=== PATIENT | female | born 1975 | race Caucasian/White ===

== ENCOUNTER 2025-02-05 11:13 | Outpatient (REF) | payer OTHER, SELFPAY ==
--- NOTE | ~2025-02-05 | XR_ITS ---
EXAMINATION: XR KNEE 3 VIEWS RIGHT HISTORY: M25.561 - Pain in right knee COMPARISON: There are no prior studies available for comparison. FINDINGS: Three views of the right knee are submitted. Osseous mineralization is normal. There is no fracture or dislocation. There is mild narrowing of the medial patellofemoral compartments. The soft tissues are unremarkable. There is no joint effusion. XR/XR knee RT 3V IMPRESSION: Mild narrowing of the medial and patellofemoral compartments. Electronically signed by: Jimmie Waters MD 02/06/2025 03:40 PM EDT
== END 2025-02-05 11:14 | disposition home or self-care (01) ==
LOC: HO.HOSX 11:13
PROVIDERS: Visit Provider Orthopaedic Surgery
DX: M25.561 Pain in right knee (principal)
CPT/HCPCS: 73562

== ENCOUNTER 2025-02-05 13:41 | Outpatient (AMB) | payer OTHER, SELFPAY ==
--- NOTE | 2025-02-05 13:57 | MHC.OFFVIS ---
Vital Signs 02/05/25 14:14 Height 5 ft 6 in Weight 225 lb BMI 36.3 Intake Visit Reasons: Right knee pain and giving way Intake Note: Ramiro is a 49 year old female who presents with complaints of progressively worsening right knee pain and giving way. The patient states that her symptoms have gotten worse over the last few months. She has failed the last 6 weeks of conservative treatment which has included a home exercise program, Tylenol and ibuprofen. The patient states that most of the pain is along the medial aspect of her knee. She has done physical therapy exercises which aggravated her pain. Allergies amoxicillin Allergy (Unknown, Verified 02/05/25 14:16) Unknown Physical Exam Vital Signs: BMI result Body Mass Index 36.3 Const Other: Well-nourished well-developed very friendly female awake alert and oriented x3 in no acute distress Extrem Other: Bilateral lower extremity examination shows good capillary refill, no skin lesions noted, normal sensation light touch Right knee examination shows a minimal effusion, mild crepitus with range of motion, tenderness along her medial joint line, positive Shiva's test, no instability Results Reviewed Results Reviewed: Standing full weight-bearing X-rays of the patient's right knee show mild diffuse joint space narrowing, no acute bony abnormalities Assessment & Plan Assessment & Plan (1) Tear of medial meniscus of right knee: Code(s): S83.241A - Other tear of medial meniscus, current injury, right knee, initial encounter Category: Medical Plan Ms. Peralta presents with progressively worsening right knee pain and mechanical symptoms most likely due to a medial meniscus tear. Thus, will send the patient for an MRI of her right knee for further evaluation. I will see her back once the MRI is completed to discuss the findings and treatment options. Feel free to call me at any time should questions regarding her orthopedic management arise. Thank you very much for asking me to see this very friendly patient. I spent 22 minutes in reviewing the patient's records and imaging studies, seeing the patient and documenting in the medical record. Orders: Orders XR knee RT 3V Today M25.561 - Pain in right knee MR knee RT wo con Today S83.241A - Other tear of medial meniscus, current injury, right knee, initial encounter Coding Level of Care Code New Pt Level 3 (23585) Complex EM visit Add On G2211 Diagnoses Tear of medial meniscus of right knee S83.241A
[2025-02-05 14:14] VITALS: BMI 36.3
== END 2025-02-05 14:39 | disposition home or self-care (01) ==
LOC: HO.HOS 13:41
PROVIDERS: Visit Provider Orthopaedic Surgery
DX: S83.241A Other tear of medial meniscus, current injury, right knee, initial encounter (principal)
CPT/HCPCS: 99203

== ENCOUNTER → 2025-02-05 14:03 | Outpatient (BNV) | payer OTHER, SELFPAY | PROVIDERS: Visit Provider Radiology Diagnostic Radiology | DX: M25.561 Pain in right knee (principal) | CPT/HCPCS: 73562 ==

== ENCOUNTER → 2025-02-13 18:44 | Outpatient (BNV) | payer OTHER, SELFPAY | PROVIDERS: PCP Internal Medicine; Visit Provider Radiology Diagnostic Radiology | DX: S83.411A Sprain of medial collateral ligament of right knee, initial encounter (principal) | CPT/HCPCS: 73721 ==

== ENCOUNTER 2025-02-13 18:51 | Outpatient (REF) | payer OTHER, SELFPAY ==
--- NOTE | ~2025-02-13 | MR_ITS ---
EXAMINATION: MRI RIGHT KNEE WITHOUT CONTRAST HISTORY: S83.241A - Other tear of medial meniscus, current injury, right knee COMPARISON: There are no prior studies for comparison. TECHNIQUE: Coronal T1 and fat-suppressed proton density, sagittal proton density and fat-suppressed proton density, and axial fat suppressed T2 weighted MR images of the right knee were obtained. FINDINGS: Bone marrow: There is a small focus of marrow edema involving the medial tibial plateau compatible with a bone contusion. Bone marrow signal intensity is otherwise normal. Joint effusion: There is no joint effusion. Abreu's cyst: There is a small Abreu's cyst. Articular cartilage: There is mild osteoarthritis of the patellofemoral compartment particularly involving the medial patellar facet with cartilage loss and subchondral cyst formation. Muscles/soft tissues: The visualized muscles demonstrate normal signal intensity. Anterior cruciate ligament: Intact Posterior cruciate ligament: Intact Medial collateral ligament: There is edema about the medial collateral ligament compatible with a sprain. The ligament is intact. Lateral collateral ligament: Intact Medial meniscus: Intact Lateral meniscus: Intact Flexor mechanism: The popliteus, gastrocnemius, and hamstring tendons are intact. Quadriceps tendon: Intact Patellar tendon: Intact Patellar retinacula: Intact MR/MR knee RT wo con IMPRESSION: 1. Mild osteoarthritis of the patellofemoral compartment as described. 2. Findings consistent with a small bone contusion involving the medial tibial plateau. 3. MCL sprain. Electronically signed by: Jimmie Waters MD 02/14/2025 07:56 AM EDT
--- OUTSIDE RECORDS SUMMARY | 2025-02-13 19:37 | XMS_ITS | Clinical Summary ---
Author Organization [address] Address [address] [place] [address] [place] [address] Phone Care Team Providers Care Mold Maintenance Technician Name Role Phone Elijah Lake MD Primary Care Provider [phone] Allergies Active Allergy Reactions Criticality Noted Date Comments Amoxicillin 04/08/2011 Medications albuterol HFA (PROAIR HFA ; PROVENTIL HFA ; VENTOLIN HFA) 90 mcg/actuation inhaler Inhale 2 Puffs into the lungs every 4 hours as needed for Cough, Wheezing or Shortness of Breath. 9 Active LEVONORGESTREL UTRN by Intrauterine route. Active ibuprofen (ADVIL,MOTRIN) 800 mg tablet Take 1 Tablet by mouth every 8 hours as needed for Pain for up to 360 days. 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 Asthma 09/08/2014 Overview (11/25/2024): Very mild, no need for med/Alb for 3 years Immunizations Name Administration Dates Next Due Tdap Tetanus diptheria acell ular pertussis (Boostrix; Adacel) 7yo and older 11/10/2010 Surgical History Surgery Date Site/Laterality Comments VAGINOSCOPY PROCEDURE: [place] COLPOSCOPY CERVIX VAG LOOP ELTRD BX CERVIX ANKLE SURGERY PROCEDURE: HISTORICAL ANKLE SURGERY Medical History Medical History Date Comments Asthma DX:Asthma Asthma 02/16/2009 DX:Asthma; COMME NT: Very mild, no need for med/Alb for 3 years 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 DX:Osteochondral talar dome lesion Family History Medical History Relation Name Comments No Known Problems Brother No Known Problems Father Other: heart disease Grandparent Other: skin ca Maternal Grandmother No Known Problems Mother Melanoma Sister Breast cancer Neg Hx Relation Name Status Comments Brother Alive Father Alive Grandparent Maternal Grandmother Mother Alive Sister Alive Social History Tobacco Use Types Packs/Day Years Used Date Smoking Tobacco: Former Cigarettes 1 5 0 11/20/1992 - 11/20/1997 Smokeless Tobacco: Never Alcohol Use Standard Drinks/Week Comments Yes 0 (1 standard drink = 0.6 oz pur e alcohol) Comments No Sex and Gender Information Value Date Recorded Sex Assigned at Not on file Legal Sex Female 7:19 AM EST Gender Identity Not on file Sexual Orientation Not on file Obstetrics History Para Term AB IAB SAB Ectopic Multiple Livin g Live Births 1 Date Outcome GA Total Labor Labor//3rd Weight Sex Type Anes PTL Jocelynn A1 A5 Name Clin Term Last Filed Vital Signs Vital Sign Reading Time Taken Comments Blood Pressure 116/72 02/15/2024 4:10 PM EDT Pulse 70 02/15/2024 4:10 PM EDT Temperature - - Respiratory Rate - - Oxygen Saturation - - Inhaled Oxygen Concentration - - Weight 103 kg (226 lb 3.2 oz) 02/15/2024 4:10 PM EDT Height 167.6 cm (5' 6 ) 02/07/2023 11:36 AM EDT Body Mass Index 36.51 02/07/2023 11:36 AM EDT Plan of Treatment Health Maintenance Due Date Last Done Comments Hepatitis B Vaccines (1 of 3 - 19+ 3-dose series) 1995 Pneumococcal Vaccine: Pediatrics (0 to 5 Years) and At-Risk Patients (6 to 64 Years) (1 of 2 - PCV) 1995 Cervical Cancer Screening: Pap Smear 06/27/2020 06/27/2017, 06/27/2017 DTaP,Tdap,and Td Vaccines (2 - Td or Tdap) 11/10/2020 11/10/2010 Colorectal Cancer Screening: Colonoscopy 10/29/2022 Depression Screening 10/29/2022 HIV Screening 10/29/2022 Hepatitis C Screening 10/29/2022 Social Influencers of Health Screening 10/29/2022 COVID-19 Vaccine (2023- season) 2024 Influenza Vaccine (#1) 2024 Breast Cancer Screening 11/04/2026 11/04/20 24, 07/17/2023, 07/06/2022, Additional history exists HIB Vaccines Aged Out No longer eligi ble based on patient's age to complete this topic HPV Vaccines Aged Out No longer eligi ble based on patient's age to complete this topic Hepatitis A Vaccines Aged Out No long er eligible based on patient's age to complete this topic IPV Vaccines Aged Out No longer eligi ble based on patient's age to complete this topic MMR Vaccines Aged Out No longer eligi ble based on patient's age to complete this topic Meningococcal ACWY Vaccine Aged Out N o longer eligible based on patient's age to complete this topic Meningococcal B Vacine Aged Out No lo nger eligible based on patient's age to complete this topic RSV Immunization Patients Under 20 months Aged Out No longer eligible based on patient's age to complete this topic Varicella Vaccines Aged Out No longer eligible based on patient's age to complete this topic Procedures Procedure Name Priority Date/Time Associated Diagnosis Comments MG MAMMO DIGITAL SCREENING W TERRENCE BILAT Routine 11/04/2024 2:51 PM EST Encounter for screening mammogram for breast cancer HPV Routine 06/27/2017 from Last 3 Months or Most Recently Relevant to Health Maintenance Results * MG Mammo Digital Screening w Terrence bilat (11/04/2024 2:51 PM EST) Anatomical Region Laterality Modality Breast Bilateral Mammography 11/05/2024 11:3 4 AM EST Impressions 11/05/2024 11:35 AM EST No mammographic evidence of malignancy. BREAST DENSITY: B - There are scattered areas of fibroglandular density. BI-RADS CATEGORY: 1 - NEGATIVE RECOMMENDATION: Screening bilateral mammogram is recommended in 1 year. MAMMO LOCATION: [facility], [address] [place] [address], [phone], . -------- FINAL REPORT -------- Dictated By: Julieth Willis Dictated Date: 11/05/2024 11:34 ET Assigned Physician: Julieth Willis Reviewed and Electronically Signed By: Julieth Willis Signed Date: 11/05/2024 11:35 ET Workstation ID: [id number] Transcribed By: Self Edit Transcribed Date: 11/05/2024 11:34 ET Narrative 11/05/2024 11:35 AM EST EXAM: Screening Mammogram CLINICAL: 49 years old, Female, routine annual exam. COMPARISON: 07/17/2023 and as far back as 12/25/2019 ?? TECHNIQUE: Bilateral MLO and CC views were obtained digitally with 3-D mammogram (digital breast tomosynthesis). Computer-aided detection was utilized in evaluation of this exam (CAD). FINDINGS: No new suspicious mass, architectural distortion, or suspicious calcifications. Procedure Note Julieth Willis MD - 11/05/2024 EXAM: Screening Mammogram CLINICAL: 49 years old, Female, routine annual exam. COMPARISON: 07/17/2023 and as far back as 12/25/2019 TECHNIQUE: Bilateral MLO and CC views were obtained digitally with 3-Dmammogram (digital breast tomosynthesis). Computer-aided detection wasutilized in evaluation of this exam (CAD). FINDINGS: No new suspicious mass, architectural distortion, or suspiciouscalcifications. IMPRESSION: No mammographic evidence of malignancy. BREAST DENSITY: B - There are scattered areas of fibroglandular density. BI-RADS CATEGORY: 1 - NEGATIVE RECOMMENDATION: Screening bilateral mammogram is recommended in 1 year. MAMMO LOCATION: [facility], [address] [place] [address], [phone], . -------- FINAL REPORT -------- Dictated By: Julieth Willis Dictated Date: 11/05/2024 11:34 ET Assigned Physician: Julieth Willis Reviewed and Electronically Signed By: Julieth Willis Signed Date: 11/05/2024 11:35 ET Workstation ID: [id number] Transcribed By: Self Edit Transcribed Date: 11/05/2024 11:34 ET Elijah Lake MD IMG BI PROCEDURES Final Result * Hm Cervical Cancer Screening: HPV (06/27/2017) Cervical Cancer Screening: HPV no interpreta tion,abstr acted us Historical Provider HEALTH MAINTENANCE Final Result from Last 3 Months or Most Recently Relevant to Health Maintenance Insurance [employer] Care Teams Mold Maintenance Technician Relationship Specialty Start Date End Date Elijah Lake MD [address] [place] [address] ELIEL Pierce [id number] PCP - General 01/18/09
== END 2025-02-13 18:52 | disposition home or self-care (01) ==
LOC: HO.MRI 18:51
PROVIDERS: PCP Internal Medicine; Visit Provider Orthopaedic Surgery
DX: S83.241A Other tear of medial meniscus, current injury, right knee, initial encounter (principal)
CPT/HCPCS: 73721

== ENCOUNTER 2025-02-20 14:46 | Outpatient (AMB) | payer OTHER, SELFPAY ==
[2025-02-20 14:50] VITALS: BMI 36.3
--- NOTE | 2025-02-20 14:50 | A.OFFVIS_ITS ---
Vital Signs 02/20/25 14:50 Height 5 ft 6 in Weight 225 lb BMI 36.3 Intake Visit Reasons: MRI Review Right knee Intake Note: Ramiro is a 49 year old female who presents today for review of right knee MRI result. The patient describes her knee pain as sharp in nature. Most of the pain is along the anterior and medial aspects of her knee. She has tried ibuprofen which gives her mild relief. The patient states that at times it feels like her right knee will give out. She has tried on several to[place]kw[place] knee braces but none of them fit her well. Allergies amoxicillin Allergy (Unknown, Verified 02/20/25 14:50) Unknown Medication List - Last Reconciled 02/20/25 by Michael Heredia MD ibuprofen 800 mg PO TID methylprednisolone (Medrol (Scot)) PO PER PKG DIR Physical Exam Vital Signs: BMI result Body Mass Index 36.3 Const Other: Well-nourished well-developed very friendly female awake alert and oriented x3 in no acute distress Extrem Other: Right knee examination shows a minimal effusion, minimal crepitus with range of motion, tenderness along her proximal tibia, no overlying skin lesions Results Reviewed Results Reviewed: MRI of the patient's right knee shows bone bruising of the medial tibial plateau, no evidence of meniscus or ligamentous injury, a grade 1 medial collateral ligament sprain Assessment & Plan Assessment & Plan (1) Right knee pain: Code(s): M25.561 - Pain in right knee Category: Medical Plan Ms. Peralta presents with right knee pain due to bony contusion and a grade 1 sprain of her medial collateral ligament. I had a lengthy discussion with the patient regarding the treatment options. There is no surgery indicated for these injuries. I did give her a prescription for a Medrol Dosepak to help with her discomfort. I also had her fitted with a knee brace. I do feel that the knee braces a medical necessity because of her symptoms of instability to help prevent future falls. The patient will follow up with me on an as-needed basis should her symptoms not plateau over the next few months. Feel free to call me at any time should questions regarding her orthopedic management arise. I spent 21 minutes in reviewing the patient's records and imaging studies, see ing the patient and documenting in the medical record. Medications: New methylprednisolone (Medrol (Scot)) PO PER PKG DIR 21 ea 0RF Coding Level of Care Code Est Pt Level 3 (79783) Complex EM visit Add On G2211 Diagnoses Right knee pain M25.561
--- OUTSIDE RECORDS SUMMARY | 2025-02-20 16:15 | XMS_ITS | Clinical Summary ---
Author Organization [address] Address [address] [place] [address] [place] [address] Phone Care Team Providers Care Patient Experience Coordinator Name Role Phone Elijah Lake MD Primary Care Provider [phone] Allergies Active Allergy Reactions Criticality Noted Date [...] History Surgery Date Site/Laterality Comments VAGINOSCOPY PROCEDURE: [place] COLPOSCOPY CERVIX VAG LOOP ELTRD BX CERVIX [...] Procedure Name Priority Date/Time Associated Diagnosis Comments EXTERNAL MRI REPORT 02/13/2025 EXTERNAL MRI REPORT 02/13/2025 MG MAMMO DIGITAL SCREENING W TERRENCE BILAT Routine 11/04/2024 2:51 PM EST Encounter for screening mammogram for breast cancer HPV Routine 06/27/2017 from Last 3 Months or Most Recently Relevant to Health Maintenance Results * External MRI Report (02/13/2025) Only the most recent of2 resultswithin the time period is included. Anatomical Region Laterality Modality Magnetic Resonan ce us Provider [facility] MRI PROCEDURES Final Result * MG Mammo Digital Screening w Terrence bilat (11/04/2024 2:51 PM EST) Anatomical Region Laterality Modality Breast Bilateral Mammography 11/05/2024 11:3 4 AM EST Impressions 11/05/2024 11:35 AM EST No mammographic evidence of malignancy. BREAST DENSITY: B - There are scattered areas of fibroglandular density. BI-RADS CATEGORY: 1 - NEGATIVE RECOMMENDATION: Screening bilateral mammogram is recommended in 1 year. MAMMO LOCATION: [facility], [address] [place] [address], [phone], . -------- FINAL REPORT -------- Dictated By: Julieth Willis Dictated Date: 11/05/2024 11:34 ET Assigned Physician: Julieth Willis Reviewed and Electronically Signed By: Julieth Willis Signed Date: 11/05/2024 11:35 ET Workstation ID: [id number] Transcribed By: Self Edit Transcribed Date: 11/05/2024 [...] is recommended in 1 year. MAMMO LOCATION: [facility], [address] [place] [address], [phone], . -------- FINAL REPORT -------- Dictated By: Julieth Willis Dictated Date: 11/05/2024 11:34 ET Assigned Physician: Julieth Willis Reviewed and Electronically Signed By: Julieth Willis Signed Date: 11/05/2024 11:35 ET Workstation ID: [id number] Transcribed By: Self Edit Transcribed Date: 11/05/2024 11:34 ET Elijah Lake MD IMG BI PROCEDURES Final Result * Cervical Cancer Screening: HPV (06/27/2017) Pathologist [facility] Cervical Cancer Screening: HPV no interpreta tion,abstr acted Historical Provider HEALTH MAINTENANCE Final Result from Last 3 Months or Most Recently Relevant to Health [place] [id number] [employer] Care Teams Patient Experience Coordinator Relationship Specialty Start Date End Date Elijah Lake MD [address] [place] [address] PCP - General 01/18/09
--- OUTSIDE RECORDS SUMMARY | 2025-02-20 16:15 | XMS_ITS | Data Portability ---
Author Organization [facility], [address] Address [address] [place] [address] Care Team Providers Care Process Assistant Name Role Phone [facility] Prim franklin Care Provider Assessment No assessment recorded. Plan of Treatment Reminders Order Date Submit Date Provider Last Modified By Organization Details Last Modified Time Details Appointments None recorded. Lab rapid SARS CoV 2 Ag, QL IA, respiratory specimen 2022 023 [facility], [address] [place] [address], [phone], 3 16:34:38 rapid flu (A+B) 2022 023 [email or web address] _[facility], [address] [place] [address], [phone], 3 09:57:07 rapid SARS CoV 2 Ag, QL IA, respiratory specimen [address], [address] [place] [address], [phone], 3 09:57:07 Referral None recorded. Procedures None recorded. Surgeries None recorded. Imaging None recorded. Medication Orders benzonatate 200 mg capsule 2022 023 [id number], [address], [place], [address], 3 16:34:42 prednisone 20 mg tablet 2022 023 [facility]/Pharmacy #[id number], [address], [place], [address], 3 16:34:42 albuterol sulfate HFA 90 mcg/actuati on aerosol inhaler 2022 023 [facility]/Pharmacy #[id number], [address], [place], [address], 3 16:34:43 Allergy Relief (fluticason e) 50 mcg/actuati on nasal spray,suspe nsion 2022 023 [facility]/Pharmacy #[id number], [address], [place], [address], 3 16:34:42 Patient TargetsNo targets recorded. Patient Instructions Encounter Date Encounter Id Patient Instructions Last Modified By Organization Details Last Modified Time 12/03/2022 [id number] laryngitis: care instructions Not available 12/03/2022 09:57:07 cough: care instructions Not available 12/03/2022 09:57:07 01/29/2023 [id number] cough: care instructions Not available 01/29/2023 16:34:38 wheezing or bronchoconstrictio n: care instructions Not available 01/29/2023 16:34:38 Patient instruct ed on worsening signs and symptoms that would require further evaluation by ED or PCP such as fever of 101.0 or greater, congestion accompanied with coughing, vomiting, diarrhea, abdominal pain, decreased oral intake, lethargy, or other new symptom(s) experienced not discussed during this visit. Use humidifier and ensure good hydration. If you experience new concerning symptoms, shortness of breath, respiratory distress, or chest pain go to the ER. Use the medications prescribed. May use Decongestants if tolerated and no history of elevated blood pressure or Diabetes. Use saline nasal saline and Flonase daily for1 week. You may use tylenol for pain/fever. Do not take prednisone with Ibuprofen. Get some extra rest. When should you call for help? Call anytime you think you may need emergency care. For example, call if: You have severe trouble breathing. Call your doctor now or seek immediate medical care if: You have new or worse trouble breathing. You cough up dark brown or bloody mucus (sputum). You have a new or higher fever. You have a new rash. Watch closely for changes in your health, and be sure to contact your doctor if: You cough more deeply or more often, especially if you notice more mucus or a change in the color of your mucus. You are not getting better as expected. If you test positive for COVID-19, stay home for at least 5 days and isolate from others in your home. You are likely most infectious during these first 5 days. Wear a high-quality mask if you must be around others at home and in public. Do not go places where you are unable to wear a mask. For travel guidance, see CDC? s Travel webpage. Do not travel. Stay home and separate from others as much as possible. Use a separate bathroom, if possible. Take steps to improve ventilation at home, if possible. Don? t share personal household items, like cups, towels, and utensils. Monitor your symptoms. If you have an emergency warning sign (like trouble breathing), seek emergency medical care immediately. If you had symptoms and: Your symptoms are improving You may end isolation after day 5 if: You are fever-free for 24 hours (without the use of fever-reducing medication). Your symptoms are not improving Continue to isolate until: You are fever-free for 24 hours (without the use of fever-reducing medication). Your symptoms are improving. Regardless of when you end isolation Until at least day 11: Avoid being around people who are more likely to get very sick from COVID-19. Remember to wear a high-quality mask when indoors around others at home and in public. Do not go places where you are unable to wear a mask until you are able to discontinue masking (see below). For travel guidance, see CDC? s Travel webpage. Not available 01/29/2023 16:34:24 Reason for Referral None Reported. Results Created Date Observation Date Name Description Value Unit Range Abnormal Flag Note LastModifiedBy Organization Detail LastModifiedTime 12/03/19 23 12/03/2022 rapid SARS CoV 2 Ag, QL IA, respi rator y speci men Unknown Analyte Normal =Negat bishnu Not Available yen [address], [place], [address], 12/03/2022 08:58:32 12/03/19 23 12/03/2022 rapid SARS CoV 2 Ag, QL IA, respi rator y speci men Unknown Analyte negati ve Not Available [address] [place] [address], [place], [address], 12/03/2022 08:58:32 12/03/19 23 12/03/2022 rapid flu (A+B) Unknown Analyte Normal = Negati ve Not Available [address] [place] [address], [place], [address], 12/03/2022 08:58:22 12/03/19 23 12/03/2022 rapid flu (A+B) Unknown Analyte negati ve Not Available [address] [place] [address], [place], [address], 12/03/2022 08:58:22 12/03/19 23 12/03/2022 rapid flu (A+B) Unknown Analyte Normal = Negati ve Not Available [address] [place] [address], [place], [address], 12/03/2022 08:58:22 12/03/19 23 12/03/2022 rapid flu (A+B) Unknown Analyte negati ve Not Available [address] [place] [address], [place], [address], 12/03/2022 08:58:22 01/30/20 23 01/29/2023 rapid SARS CoV 2 Ag, QL IA, respi rator y speci men Unknown Analyte Normal =Negat bishnu Not Available [address] [place] [address], [place], [address], 01/29/2023 16:24:27 01/30/20 23 01/29/2023 rapid SARS CoV 2 Ag, QL IA, respi rator y speci men Unknown Analyte negati ve Not Available [address] [place] [address], [place], [address], 01/29/2023 16:24:27 Result Notes None recorded. Problems No Known Problems Procedures Surgical History Date Name Laterality Status Provider Name and Address Organization Details Recorded Time procedure on ankle completed MATIAS CANALES PA - [facility] 12/03/2022 09:02:14 Mirena, 52 mg completed BELKYS GONZALES PA - [facility] 01/29/2023 15:38:39 Imaging Results None recorded. Procedure Notes None recorded. Medical Equipment None Reported. Allergies Allergen ID Allergen Name Allergen Category Reaction Reaction Severity Criticality Documentation Date Start Date Code Code System Note Provider Name and Address Organization Details Recorded Time 032139 amoxicill in medicatio n Not available Not available Not available 12/03/2022 723 RxNorm MATIAS henry PA - [facility] 09:01:33 Medications Name Sig Start Date Stop Date Status Note LastModified by Organization Details LastModified Time fluconazole 150 mg tablet 12/03 completed Not Available Not Available Not Available benzonatate 200 mg capsule Take 1 capsule 3 times a day by oral route as needed for 7 days. 2022 active Not Available Not Available Not Avai lable prednisone 20 mg tablet Take 2 tablets every day by oral route in the morning for 4 days. 2022 active Not Available Not Available Not Avai lable albuterol sulfate HFA 90 mcg/actuati on aerosol inhaler Inhale 2 puffs every 4-6 hours by inhalatio n route as needed for 10 days. 2022 active Not Available Not Available Not Avai lable fluticasone propionate 50 mcg/actuati on nasal spray,suspe nsion SPRAY 1 SPRAY BY INTRANASA L ROUTE EVERY DAY DIRECTED FOR 30 DAYS active Not Available Not Available No t Available Vitals Date Recorded Body height Body mass index (BMI) Body weight Body temperature Oxygen saturation Oxygen saturation in Arterial blood by Pulse oximetry Heart rate Respiratory rate Systolic blood pressure Diastolic blood pressure Provider Name and Address Organization Details Last Updated DateTime 3 167.64 cm 35.2 kg/m2 25221.1 4 g 97 [degF] 98 % 98 % 80 /min 18 /min 105 mm[Hg] 70 mm[Hg] BELKYS CHRISTIAN PA - [facility] 3 15:40:23 Date Recorded Body height Body mass index (BMI) Body weight Respiratory rate Pain severity - 0-10 verbal numeric rating [Score] - Reported Oxygen saturation Oxygen saturation in Arterial blood by Pulse oximetry Heart rate Body temperature Systolic blood pressure Diastolic blood pressure Provider Name and Address Organization Details Last Updated DateTime 3 167.64 cm 35.2 kg/m2 19199.1 4 g 18 /min 0 98 % 98 % 79 /min 98.1 [degF] 113 mm[Hg] 74 mm[Hg] MATIAS HAIR RA PA - [facility] 3 09:06:03 Social History Question Answer Notes LastModified by Organizat ion Details LastModified Time Tobacco Smoking Status Never Smoker MATIAS henry PA - [facility] 12/03/2022 09:03:29 What Is Your Level Of Alcohol Consumption? Occasional Information not available 12/03/2022 Have You Had Direct Contact, Or Contact During Intimacy, With Monkeypox Rash, Scabs, Or Body Fluids From A Person With Monkeypox? No Information not available 12/03/2022 Do You Use Any Illicit Or Recreational Drugs? No Information not available 12/03/2022 Have You Recently Traveled Abroad? No Information not available 12/03/2022 Do You Or Have You Ever Used Any Other Forms Of Tobacco Or Nicotine? No Information not available 12/03/2022 Sex: Unknown Functional Status None recorded. Mental Status None recorded. Family History Relationship Description Onset Age of this Age Resolved Age Notes LastModified by Organization Details LastModified Time Unspecified Relation Malignant neoplastic disease Not available 09:02:53 Unspecified Relation Myocardial infarction Not available 09:03:09 Medical History No medical history recorded. Gynecological History Statement/Question Response Date of LMP Obstetrics History GPAL:G 0 P 0 0 0 0 Past Encounters Encounter ID Performer Location Encounter Start Date Encounter Closed Date Diagnosis/Indication Diagnosis SNOMED-CT Code Diagnosis ICD10 Code Diagnosis Note [id number] [address] [address] 12/13/2015 10:21:15 12/13/2015 10:56:35 [id number] Morris Virajbeto, _[address] [address] 12/03/2022 08:30:54 12/03/2022 10:00:30 Upper respiratory infection 63605317 J06.9 Viral infectionR ecommend plenty of fluidsTyle nol, Motrin for pain/fever Humidifier Nasal saline sprayNo need for antibiotic may last up to 2 weeksCall or RTC if worsening cough, SOB, high fever, rash, n/v/d and unable to hydrate Acute laryngitis 9825746 J04.0 fluidsvoca l restwarm salt water gargleshum idified air Patient advised to follow up as needed for worsening symptoms or no improvemen t. [id number] Á[place] [address] [address] 01/29/2023 12:48:12 01/29/2023 16:46:33 Acute bronchitis 13137795 J20.9 Exposure t o SARS-CoV-2 878815250 Z20.822 Health Concerns Section Related Observation LastModified by Organization Detai ls LastModified Time None Recorded Concern Status LastModified by Organization Details LastModified Time None Recorded Advance Directives Directive None Recorded Payers Encounter Date Sequence Insurance Name Policy Number Policy Dwyer Covered Member ID Dwyer Member ID Guarantor Name 12/13/2015 1 [place] ([place] [id number] Ramiro Peralta [id number] Ramiro Peralta 12/03/2022 1 [facility] [place] Ramiro Peralta [id number] Ramiro Peralta 01/29/2023 1 [facility] [place] Ramiro Peralta [id number] Ramiro [place] Notes Date Note Type Note Provider Name and Address Organization Details Recorded Time 3 text/html CoughReported bypatient.Notes:47 yo femalec/o cough, loss of voice, scratchy throat, postnasal drip x 5 days.+ exposed to flu No feverNo chillsNo difficulty breathing or respiratory distressNo CP+ congestionNo ear painNo Abdominal painNo nauseaNo vomitingNp diarrheaNo myalgiaNo fatigueNo rashNo HANo dizzinessNo recent travel Morris Choi DO [address] [facility] [place], [address], PA - [facility] 12/03/2022 09:57:25 3 text/html CoughReported bypatient.source of patient informationInformation obtained from patient; Patient arrived at Urgent Care ambulatory; learning styles: auditory Quality:productive cough; intermittent; symptoms worse with lying down Severity:worsening Duration:constant Timing:worsening; gradual Context:Patient denies vaping; non-smoker Associated Symptoms:no fever; no chills; no chest pain; no heartburn; no nausea; no vomiting; no edema; no agitation;wheezing;post nasal drip;can't get a deep breath Álvaro Maya NP [address] [facility] [place], [address], [place] - [facility] 01/29/2023 16:35:29 OBGyn Episode No OBEpisode recorded.
== END 2025-02-20 15:16 | disposition home or self-care (01) ==
LOC: HO.HOS 14:47
PROVIDERS: PCP Internal Medicine; Visit Provider Orthopaedic Surgery
DX: M25.561 Pain in right knee (principal)
CPT/HCPCS: 99213